=== PATIENT | male | born 1995 | race Two or more races ===

== ENCOUNTER 2016-08-01 18:25 | Emergency (ER) | payer OTHER ==
[2016-08-01] MEDS ORDERED: DEXAMETHASONE 4 MG TABLET (FP) PO ONE (18:37)
--- NOTE | 2016-08-01 18:37 | PDOC ---
History of Present Illness <JimRaul - Last Filed: 08/01/16 18:35> - General History Source: Patient Exam Limitations: No Limitations - History of Present Illness Initial Comments: 08/01/16 18:39 The patient is a 20 year old male with past medical history significant for mild intermittent asthma who presents to the ED with 3 weeks of persistent cough. He states the cough is constant and is worse during the night. He denies the cough being related to his asthma and states he experienced fever and chills with the cough three weeks ago which has since subsided. He denies any wheezing or shortness of breath. The patient denies any fever, chills, nausea, vomiting, diarrhea, or chest pain. He reports that he uses an inhaler at home, but it is . <Shyanne Golden - Last Filed: 08/01/16 18:42> - General Chief Complaint: Cold Symptoms Stated Complaint: COUGH Time Seen by Provider: 08/01/16 18:35 Past History - Past Medical History Asthma: Yes - Surgical History Appendectomy: Yes - Immunization History Immunization Up to Date: Yes - Psycho/Social/Smoking Cessation Hx Anxiety: No Suicidal Ideation: No Smoking Status: No Smoking History: Former smoker Have you smoked in the past 12 months: No Number of Cigarettes Smoked Daily: 0 <JimRaul - Last Filed: 08/01/16 18:35> <Shyanne Golden - Last Filed: 08/01/16 18:42> - Past Medical History Allergies/Adverse Reactions: Allergies Allergy/AdvReac Type Severity Reaction Status Date / Time amoxicillin [Amoxicillin] Allergy Severe Verified 08/01/16 18:38 apple Allergy Severe Swelling Verified 08/01/16 18:38 peanut Allergy Severe Difficulty Verified 08/01/16 18:38 Breathing Home Medications: Ambulatory Orders Albuterol Sulfate Inhaler - [Ventolin HFA Inhaler -] 2 inh IH Q4H PRN #1 inh Review of Systems - Review of Systems Able to Perform ROS?: Yes Comments:: 08/01/16 18:39 CONSTITUTIONAL: Absent: fever, no chills, no fatigue EYES: Absent: visual changes ENT: Absent: ear pain, no sore throat CARDIOVASCULAR: Absent: chest pain, no palpitations RESPIRATORY: Present: cough Absent: SOB GI: Absent: abdominal pain, no nausea, no vomiting, no constipation, no diarrhea GENITOURINARY: Absent: dysuria, no frequency, no hematuria MUSKULOSKELETAL: Absent: back pain, no arthralgia, no myalgia SKIN: Absent: rash NEURO: Absent: headache All Other Systems: Reviewed and Negative <Shyanne Golden - Last Filed: 08/01/16 18:42> *Physical Exam - Vital Signs Last Vital Signs Temp Pulse Resp BP Pulse Ox 98.2 F 72 15 125/80 99 08/01/16 18:33 08/01/16 18:33 08/01/16 18:33 08/01/16 18:33 08/01/16 18:33 - Physical Exam Comments: 08/01/16 18:41 GENERAL: Well-appearing, well-nourished. No apparent distress. HEENT: Normocephalic, atraumatic. PERRL, EOM intact. CARDIOVASCULAR: Normal S1, S2. Regular rate and rhythm. PULMONARY: Mild end expiratory wheeze. ABDOMEN: Soft, non-distended, non-tender. EXTREMITIES: Normal ROM in all four extremities. No gross deformities. SKIN: Warm, dry. No rash NEUROLOGICAL: No focal neurological deficits. <Shyanne Golden - Last Filed: 08/01/16 18:42> Medical Decision Making - Medical Decision Making 08/01/16 18:35 The patient is well-appearing and in no acute distress His clinical presentation is most consistent with post viral bronchospasm We'll administer single dose of Decadron Will refill albuterol MDI Clinical impression: Bronchospasm, status post resolved upper respiratory tract infection I discussed the physical exam findings, ancillary test results and final diagnoses with the patient. I answered all of the patient's questions. The patient was satisfied with the care received and felt comfortable with the discharge plan and treatment plan. The patient will call their primary care physician within 24 hours to arrange follow-up and will return to the Emergency Department with any new, persistent or worsening symptoms. <Raul Fernandez - Last Filed: 08/01/16 18:35> *DC/Admit/Observation/Transfer <Raul Fernandez - Last Filed: 08/01/16 18:35> - Attestations Scribe Attestion: 08/01/16 18:42 Documentation prepared by Shyanne Golden, acting as medical information officer for Raul Fernandez MD. <Shyanne Golden - Last Filed: 08/01/16 18:42> Diagnosis at time of Disposition: Bronchospasm - Discharge Dispostion Condition at time of disposition: Good - Prescriptions Prescriptions: Albuterol Sulfate Inhaler - [Ventolin HFA Inhaler -] 2 inh IH Q4H PRN #1 inh PRN Reason: Short Of Breath/Wheezing - Referrals Referrals: Katiana Henry [Primary Care Provider] - - Patient Instructions Printed Discharge Instructions: DI for Viral Upper Respiratory Infection -- Adult, DI for Asthma -- Adult Additional Instructions: Return to the emergency department immediately with ANY new, persistent or worsening symptoms. You MUST call and follow up with your doctor tomorrow. Please make sure your doctor reviews the results of your emergency department evaluation.
[2016-08-01 18:44] VITALS: BP 125/80; PULSE 72; TEMP 98.2; BMI 25.0
[2016-08-01] MEDS ORDERED: DEXAMETHASONE SOD PHOSPHATE 10 MG/1 ML VIAL ONE (18:45)
== END 2016-08-01 18:51 | disposition home or self-care (01) ==
LOC: FER 18:25
DX: J98.01 Acute bronchospasm (principal); Z87.891 Personal history of nicotine dependence
CPT/HCPCS: 99281-25

== ENCOUNTER 2022-06-26 18:21 | Emergency (ER) | payer OTHER ==
[2022-06-26 18:34] VITALS: RESP 16; TEMP 99.1; BMI 25.0
[2022-06-26 19:05] VITALS: BP 120/70; PULSE 70
== END 2022-06-26 19:18 | disposition home or self-care (01) ==
LOC: FER 18:21
DX: R35.0 Frequency of micturition (principal); R10.84 Generalized abdominal pain
CPT/HCPCS: 36415; 81003; 82962; 87086; 87491; 87591; 99283-25

== ENCOUNTER 2023-11-20 22:40 | Emergency (ER) | payer OTHER ==
[2023-11-20 22:53] VITALS: BP 159/110; PULSE 121; RESP 18; TEMP 98.7; BMI 25.0
== END 2023-11-20 23:56 | disposition home or self-care (01) ==
LOC: FER 22:40
DX: M76.891 Other specified enthesopathies of right lower limb, excluding foot (principal); X50.1XXA Overexertion from prolonged static or awkward postures, initial encounter
CPT/HCPCS: 99283-25